=== PATIENT | male | born 1950 | race African-American/Black ===

== ENCOUNTER 2016-04-25 09:21 | Emergency (ER) | payer MEDICARE ==
[2016-04-25] MEDS ORDERED: methylPREDNISolone Sod Succ/PF 125 MG/2 ML VIAL ONE (09:38)
[2016-04-25] MEDS ORDERED: Sterile Water 10 ML ONE (09:39)
--- NOTE | 2016-04-25 09:50 | RAD ---
SINGLE VIEW OF THE CHEST: COMPARISON: 12/01/12. HISTORY: Cough. FINDINGS: Single view of the chest shows a normal sized cardiomediastinal silhouette. There is no evidence of consolidation, mass, or pleural effusion. The bones are unremarkable. IMPRESSION: No evidence of acute cardiopulmonary disease. POS: [facility]
[2016-04-25 10:24] LABS: Anion Gap 17 mmol/L (10-20); BUN (Urea Nitrogen) 10 mg/dL (8.4-25.7); Calc. Creatinine Clearance 0 mL/min (70-130); Calcium 9.2 mg/dL (7.8-10.44); Carbon Dioxide 23 mmol/L (23-31); Chloride 102 mmol/L (98-107); Estimated GFR-MDRD 82; Glucose 99 mg/dL (80-115); Potassium 3.4 mmol/L (3.5-5.1); Sodium 139 mmol/L (136-145)
[2016-04-25 10:31] LABS: Hemoglobin 14.6 g/dL (14.0-18.0); Mean Corpuscular HGB CONC 33.6 g/dL (32.0-36.0); Mean Corpuscular Hemoglobin 27.8 pg (27.0-31.0); Mean Corpuscular Volume 82.6 fl (80.0-94.0); RBC Distribution Width 12.7 % (11.5-14.5); Red Blood Cell (RBC) Count 5.25 mill/uL (4.70-6.10); White Blood Cell (WBC) Count 9.3 thou/uL (4.8-10.8)
[2016-04-25 10:32] LABS: %Basophils 1.2 % (0.0-1.0); %Eosinophils 0.5 % (0.0-10.0); %Lymphocytes 18.6 % (21.0-51.0); %Monocytes 8.5 % (0.0-10.0); %Neutrophils 71.2 % (42.0-75.0); Eosinophils 1 % (0-10); Lymphocytes 24 % (21-51); Monocytes 6 % (0-10); Neutrophil 69 % (42-75); Platelet Count 192 thou/uL (130-400)
[2016-04-25 10:33] LABS: MDiff Complete? YES; Manual Diff?? YES
[2016-04-25 10:44] LABS: CKMB 7.6 ng/mL (0-6.6)
[2016-04-25] MEDS ORDERED: Aspirin 325 MG TAB ONE (11:03)
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
== END 2016-04-25 11:22 | disposition short-term general hospital (02) ==
LOC: MADERS 09:21
DX: R06.00 Dyspnea, unspecified (principal); R79.89 Other specified abnormal findings of blood chemistry; F17.210 Nicotine dependence, cigarettes, uncomplicated
CPT/HCPCS: 71010; 80048; 82553; 83880; 84484; 85025; 93005; 94760; 96374; A4216; J2930; J7620

== ENCOUNTER 2016-05-05 07:12 | Emergency (ER) | payer MEDICARE | END 2016-05-05 08:10 | disposition home or self-care (01) | LOC: MADERS 07:12 | DX: M79.604 Pain in right leg (principal); I10 Essential (primary) hypertension; F17.210 Nicotine dependence, cigarettes, uncomplicated; Z79.899 Other long term (current) drug therapy | CPT/HCPCS: 99283 ==

== ENCOUNTER 2016-10-08 03:16 | Emergency (ER) | payer MEDICARE ==
[2016-10-08] MEDS ORDERED: Diazepam 5 MG TAB ONE (03:45)
[2016-10-08] MEDS ORDERED: HYDROcodone/Acetaminophen 10/325 mg Tablet ONE (03:45)
[2016-10-08] MEDS ORDERED: Acetaminophen 500 MG TAB ONE (03:45)
[2016-10-08] MEDS ORDERED: Dexamethasone 4 MG TAB ONE (03:45)
== END 2016-10-08 04:50 | disposition home or self-care (01) ==
LOC: MADERS 03:16
DX: M54.32 Sciatica, left side (principal); F17.210 Nicotine dependence, cigarettes, uncomplicated; I10 Essential (primary) hypertension; Z79.899 Other long term (current) drug therapy
CPT/HCPCS: 99283; J8540

== ENCOUNTER 2016-11-25 13:31 | Emergency (ER) | payer MEDICARE ==
[2016-11-25] MEDS ORDERED: HYDROcodone/Acetaminophen 10/325 mg Tablet ONE (14:45)
[2016-11-25 14:46] LABS: #Basophils 0.1 thou/uL (0.0-0.2); #Eosinphils 0.1 thou/uL (0.0-0.7); #Lymphocytes 2.1 thou/uL (1.20-3.40); #Monocytes 0.6 thou/uL (0.11-0.59); #Neutrophils 2.2 thou/uL (1.40-6.50); %Basophils 1.2 % (0.0-1.0); %Eosinophils 2.6 % (0.0-10.0); %Lymphocytes 41.7 % (21.0-51.0); %Monocytes 11.1 % (0.0-10.0); %Neutrophils 43.4 % (42.0-75.0); Hemoglobin 14.9 g/dL (14.0-18.0); Mean Corpuscular HGB CONC 32.4 g/dL (32.0-36.0); Mean Corpuscular Hemoglobin 26.9 pg (27.0-31.0); Mean Corpuscular Volume 83.1 fl (80.0-94.0); Mean Platelet Volume 7.9 fL (7.4-10.4); Platelet Count 134 thou/uL (130-400); RBC Distribution Width 14.2 % (11.5-14.5); Red Blood Cell (RBC) Count 5.54 mill/uL (4.70-6.10); White Blood Cell (WBC) Count 5.1 thou/uL (4.8-10.8)
[2016-11-25] MEDS ORDERED: Labetalol HCl 100 MG/20 ML VIAL ONE (14:46)
[2016-11-25] MEDS ORDERED: Ketorolac Tromethamine 30 MG/ML VIAL ONE (14:46)
[2016-11-25] MEDS ORDERED: Ondansetron HCl/PF 4 MG/2 ML Vial ONE (14:46)
[2016-11-25 14:59] LABS: ALT (SGPT) 24 U/L (8-55); AST (SGOT) 30 U/L (5-34); Albumin 3.7 g/dL (3.4-4.8); Alkaline Phosphatase 74 U/L (40-150); Anion Gap 15 mmol/L (10-20); BUN (Urea Nitrogen) 13 mg/dL (8.4-25.7); Bilirubin, Total 0.6 mg/dL (0.2-1.2); Calc. Creatinine Clearance 0 mL/min (70-130); Calcium 9.1 mg/dL (7.8-10.44); Carbon Dioxide 23 mmol/L (23-31); Chloride 104 mmol/L (98-107); Estimated GFR-MDRD Greater than 90; Globulin 3.9 g/dL (2.4-3.5); Glucose 88 mg/dL (80-115); Potassium 4.3 mmol/L (3.5-5.1); Protein, Total 7.6 g/dL (5.8-8.1); Sodium 138 mmol/L (136-145)
--- NOTE | 2016-11-25 15:39 | CT ---
CT BRAIN WITHOUT CONTRAST: History: Progressively severe headaches. FINDINGS: There are changes of chronic small vessel ischemic disease in the periventricular white matter. The ventricular size is appropriate and the basilar cisterns are patent. Large basal ganglia without opa cifications present. No evidence of acute infarct, hemorrhage, midline shift, or abnormal extraaxial fluid collections ar e seen. The bony calvarium is intact. The visualized paranasal sinuses are well aerated. IMPRESSION: No CT evidence of acute intracranial process. POS: OFF
--- NOTE | 2016-11-25 15:41 | RAD ---
SINGLE VIEW OF THE CHEST 11/25/16 COMPARISON: 04/25/16 HISTORY: Hypertension that is worsening. FINDINGS: Single view of the chest shows a normal sized cardiomediastinal silhouette. There is no evidence of consolidation, mass, or pleural effusion. The bones are unremarkable. IMPRESSION: No evidence of acute cardiopulmonary disease. POS: [facility]
== END 2016-11-25 16:20 ==
LOC: MADERS 13:31
DX: I10 Essential (primary) hypertension (principal); R51 Headache; F17.210 Nicotine dependence, cigarettes, uncomplicated
CPT/HCPCS: 70450; 71010; 80053; 83880; 84443; 85025; 87086; 93005; 96374; 96375; J1885; J2405

== ENCOUNTER 2017-05-16 10:40 | Emergency (ER) | payer MEDICARE | END 2017-05-16 11:30 | disposition home or self-care (01) | LOC: MADERS 10:40 | DX: G89.29 Other chronic pain (principal); M54.5 Low back pain; M25.511 Pain in right shoulder; I10 Essential (primary) hypertension; F17.210 Nicotine dependence, cigarettes, uncomplicated | CPT/HCPCS: 99283 ==

== ENCOUNTER 2017-12-23 02:48 | Emergency (ER) | payer MEDICARE ==
[2017-12-23] MEDS ORDERED: HYDROcodone/Acetaminophen 10/325 mg Tablet ONE (03:15)
[2017-12-23] MEDS ORDERED: predniSONE 20 MG TAB ONE (03:16)
[2017-12-23] MEDS ORDERED: Ketorolac Tromethamine 30 MG/ML VIAL ONE (03:16)
[2017-12-23] MEDS ORDERED: HYDROcodone/Acetaminophen 5/325 mg Tablet ONE (03:17)
== END 2017-12-23 03:49 | disposition home or self-care (01) ==
LOC: MADERS 02:48
DX: M54.42 Lumbago with sciatica, left side (principal); I10 Essential (primary) hypertension; Z79.891 Long term (current) use of opiate analgesic; Z79.899 Other long term (current) drug therapy
CPT/HCPCS: 96372; J1885; J7506

== ENCOUNTER 2018-07-22 08:43 | Emergency (ER) | payer MEDICARE ==
--- NOTE | 2018-07-22 09:43 | RAD ---
EXAM: Portable chest PROVIDED CLINICAL HISTORY: Chest pain COMPARISON: 11/25/2016 FINDINGS: Cardiac and mediastinal silhouette is unchanged in appearance. Vascular calcification involves the ao rtic arch. No focal consolidation, pleural fluid or pneumothorax evident. IMPRESSION: No evidence for an acute cardiopulmonary process.
[2018-07-22 09:48] LABS: #Basophils 0.1 thou/uL (0.0-0.2); #Eosinphils 0.1 thou/uL (0.0-0.7); #Lymphocytes 1.8 thou/uL (1.20-3.40); #Monocytes 0.4 thou/uL (0.11-0.59); %Basophils 1.1 % (0.0-1.0); %Eosinophils 2.1 % (0.0-10.0); %Lymphocytes 33.8 % (21.0-51.0); %Monocytes 7.8 % (0.0-10.0); %Neutrophils 55.3 % (42.0-75.0); Hemoglobin 15.1 g/dL (14.0-18.0); Mean Corpuscular Hemoglobin 26.5 pg (27.0-31.0); Mean Corpuscular Volume 82.7 fL (78.0-98.0); Mean Platelet Volume 8.6 fL (7.4-10.4); Platelet Count 157 thou/uL (130-400); RBC Distribution Width 12.7 % (11.5-14.5); Red Blood Cell (RBC) Count 5.72 mill/uL (4.70-6.10); White Blood Cell (WBC) Count 5.3 thou/uL (4.8-10.8)
[2018-07-22] MEDS ORDERED: methylPREDNISolone Sod Succ/PF 125 MG/2 ML VIAL ONE (09:54)
[2018-07-22] MEDS ORDERED: Aspirin Chewable 81 MG TAB ONE (09:54)
[2018-07-22] MEDS ORDERED: Water For Inject, Bacteriostat 30 ML ONE (09:55)
[2018-07-22 10:03] LABS: ALT (SGPT) 15 U/L (8-55); AST (SGOT) 23 U/L (5-34); Alkaline Phosphatase 71 U/L (40-150); Anion Gap 15 mmol/L (10-20); BUN (Urea Nitrogen) 12 mg/dL (8.4-25.7); Bilirubin, Total 1.5 mg/dL (0.2-1.2); CK (CPK) 289 U/L (30-200); Calc. Creatinine Clearance 0 mL/min (70-130); Calcium 9.1 mg/dL (7.8-10.44); Carbon Dioxide 27 mmol/L (23-31); Chloride 102 mmol/L (98-107); Estimated GFR-MDRD 75; Globulin 3.5 g/dL (2.4-3.5); Glucose 123 mg/dL (80-115); Lipase 17 U/L (8-78); Protein, Total 7.5 g/dL (5.8-8.1); Sodium 141 mmol/L (136-145)
[2018-07-22 10:14] LABS: Potassium 2.6 mmol/L (3.5-5.1)
[2018-07-22] MEDS ORDERED: Potassium Chloride 20 MEQ/100 ML PREMIX BAG ONE (10:53)
[2018-07-22] MEDS ORDERED: Potassium Chloride 20 MEQ TAB ONE (10:53)
[2018-07-22] MEDS ORDERED: Sodium Chloride 0.9% 1,000 ML ONE (10:54)
[2018-07-22] MEDS ORDERED: Nitroglycerin 2% Ointment 1 INCH/1 GM Packet ONE (11:07)
== END 2018-07-22 12:02 | disposition short-term general hospital (02) ==
LOC: MADERS 08:43
DX: E87.6 Hypokalemia (principal); R07.9 Chest pain, unspecified; F17.210 Nicotine dependence, cigarettes, uncomplicated; I10 Essential (primary) hypertension
CPT/HCPCS: 36415; 71045; 80053; 82550; 83690; 84484; 85025; 93005; 94640; 96365; J2930; J3480; J7050; J7620

== ENCOUNTER 2018-09-06 16:55 | Emergency (ER) | payer MEDICARE ==
[2018-09-06] MEDS ORDERED: Ibuprofen 800 MG TAB ONE (17:20)
== END 2018-09-06 17:25 | disposition home or self-care (01) ==
LOC: MADERS 16:55
DX: S70.01XA Contusion of right hip, initial encounter (principal); S39.82XA Other specified injuries of lower back, initial encounter; I10 Essential (primary) hypertension; F17.210 Nicotine dependence, cigarettes, uncomplicated; I25.10 Atherosclerotic heart disease of native coronary artery without angina pectoris; Z71.6 Tobacco abuse counseling; V59.9XXA Occupant (driver) (passenger) of pick-up truck or van injured in unspecified traffic accident, initial encounter
CPT/HCPCS: 99406

== ENCOUNTER 2018-10-23 09:51 | Emergency (ER) | payer MEDICARE | END 2018-10-23 10:30 | disposition home or self-care (01) | LOC: MADERS 09:51 | DX: G89.29 Other chronic pain (principal); M54.5 Low back pain; Z76.0 Encounter for issue of repeat prescription; F17.210 Nicotine dependence, cigarettes, uncomplicated; I10 Essential (primary) hypertension | CPT/HCPCS: 99281 ==

== ENCOUNTER 2019-04-12 22:43 | Emergency (ER) | payer MEDICARE, OTHER ==
[2019-04-12] MEDS ORDERED: Ondansetron PF 4 MG/2 ML Vial ONE (23:33)
[2019-04-12] MEDS ORDERED: Pantoprazole 40 MG VIAL ONE (23:33)
[2019-04-12] MEDS ORDERED: Lisinopril 10 MG TAB ONE (23:37)
[2019-04-13 00:05] LABS: #Basophils 0.1 thou/uL (0.0-0.2); #Eosinphils 0.3 thou/uL (0.0-0.7); #Lymphocytes 2.8 thou/uL (1.20-3.40); #Monocytes 0.5 thou/uL (0.11-0.59); #Neutrophils 3.7 thou/uL (1.40-6.50); %Basophils 1.8 % (0.0-1.0); %Eosinophils 3.9 % (0.0-10.0); %Lymphocytes 37.3 % (21.0-51.0); %Monocytes 6.9 % (0.0-10.0); %Neutrophils 50.1 % (42.0-75.0); Hemoglobin 16.2 g/dL (14.0-18.0); Mean Corpuscular HGB CONC 30.3 g/dL (32.0-36.0); Mean Corpuscular Hemoglobin 25.8 pg (27.0-31.0); Mean Platelet Volume 7.8 fL (7.4-10.4); Platelet Count 182 thou/uL (130-400); RBC Distribution Width 12.4 % (11.5-14.5); Red Blood Cell (RBC) Count 6.29 mill/uL (4.70-6.10); White Blood Cell (WBC) Count 7.4 thou/uL (4.8-10.8)
[2019-04-13] MEDS ORDERED: Sodium Chloride 0.9% 1,000 ML ONE (00:21)
[2019-04-13 00:22] LABS: ALT (SGPT) 23 U/L (8-55); Albumin 4.3 g/dL (3.4-4.8); Alkaline Phosphatase 64 U/L (40-110); Anion Gap 19 mmol/L (10-20); BUN (Urea Nitrogen) 11 mg/dL (8.4-25.7); Bilirubin, Total 0.7 mg/dL (0.2-1.2); Calc. Creatinine Clearance 0 mL/min (70-130); Calcium 9.6 mg/dL (7.8-10.44); Carbon Dioxide 22 mmol/L (23-31); Chloride 101 mmol/L (98-107); Estimated GFR-MDRD Greater than 90; Globulin 4.1 g/dL (2.4-3.5); Glucose 81 mg/dL (83-110); Lipase 22 U/L (8-78); Potassium 4.1 mmol/L (3.5-5.1); Protein, Total 8.4 g/dL (5.8-8.1); Sodium 138 mmol/L (136-145)
[2019-04-13 00:25] LABS: AST (SGOT) 30 U/L (5-34)
--- NOTE | 2019-04-13 07:47 | RAD ---
XR Chest 1 View Portable History: Cough Comparison: Radiograph July 22, 2018 Findings: Heart size upper limits of normal. Mild pulmonary venous congestion. No pneumothorax. Trace effusions. Impression: Cardiomegaly with early pulmonary edema.
== END 2019-04-13 01:10 ==
LOC: MADERS 22:43
DX: J20.9 Acute bronchitis, unspecified (principal); K29.70 Gastritis, unspecified, without bleeding; F17.210 Nicotine dependence, cigarettes, uncomplicated; I10 Essential (primary) hypertension; E78.5 Hyperlipidemia, unspecified
CPT/HCPCS: 71045; 80053; 83690; 85025; 87804; 96361; 96374; 96375; C9113; J2405; J7050

== ENCOUNTER 2020-02-08 19:13 | Inpatient (IN) | payer MEDICARE ==
[2020-02-08 21:30] VITALS: BMI 23.0
[2020-02-08] MEDS ORDERED: Senokot S 8.6-50 MG TAB PO PRN ×2 (22:15→22:40)
[2020-02-08] MEDS ORDERED: Guaifenesin DM 100-10/5 ML UDCUP PO PRN ×2 (22:17→22:40)
[2020-02-08] MEDS ORDERED: Acetaminophen 325 MG TAB PO PRN (22:20)
[2020-02-08] MEDS ORDERED: Ondansetron ODT 4 MG TAB PO PRN (22:40)
[2020-02-08] MEDS ORDERED: Atorvastatin Calcium 40 MG TAB PO SCH (23:00)
[2020-02-08] MEDS ORDERED: Lisinopril 20 MG TAB PO SCH (23:00)
[2020-02-08] MEDS ORDERED: Ipratropium/Albuterol Sulfate 4 GM AER IH SCH (23:00)
[2020-02-08] MEDS ORDERED: Gabapentin 400 MG CAP PO SCH (23:00)
[2020-02-08] MEDS: Gabapentin 400 MG CAP PO SCH (23:49)
[2020-02-08] MEDS: Lisinopril 20 MG TAB PO SCH (23:50)
[2020-02-08] MEDS: Atorvastatin Calcium 40 MG TAB PO SCH (23:51)
[2020-02-08] MEDS: Ipratropium/Albuterol Sulfate 4 GM AER IH SCH (23:51)
[2020-02-09] MEDS ORDERED: Carvedilol 3.125 MG TAB PO SCH (08:00)
[2020-02-09] MEDS: Aspirin 81 mg Enteric Coated Tablet PO SCH (08:17)
[2020-02-09] MEDS: Dexamethasone 4 MG TAB PO SCH (08:17)
[2020-02-09] MEDS: Carvedilol 3.125 MG TAB PO SCH ×2 (08:18→17:58)
[2020-02-09] MEDS: Gabapentin 400 MG CAP PO SCH ×3 (08:19→20:53)
[2020-02-09] MEDS: Amlodipine 5 MG TAB PO SCH (08:20)
[2020-02-09] MEDS: Magnesium Oxide 400 MG TAB PO SCH (08:20)
[2020-02-09] MEDS: Furosemide 20 MG TAB PO SCH (08:20)
[2020-02-09] MEDS: Ipratropium/Albuterol Sulfate 4 GM AER IH SCH ×4 (08:31→21:00)
[2020-02-09] MEDS: Lisinopril 20 MG TAB PO SCH ×2 (08:32→20:54)
[2020-02-09] MEDS: Ondansetron ODT 4 MG TAB PO PRN (08:38)
[2020-02-09] MEDS ORDERED: Magnesium Oxide 400 MG TAB PO SCH (09:00)
[2020-02-09] MEDS ORDERED: Non-Formulary Item 1 EACH (Amlodipine [Norvasc] 10 MG Tab) PO SCH (09:00)
[2020-02-09] MEDS ORDERED: FLU VACC QS2020-21(65YR UP)/PF 240 MCG/0.7 ML SYRINGE IM ONE (09:00)
[2020-02-09] MEDS ORDERED: Aspirin 81 mg Enteric Coated Tablet PO SCH (09:00)
[2020-02-09] MEDS ORDERED: Furosemide 20 MG TAB PO SCH (09:00)
[2020-02-09] MEDS ORDERED: DEXAMETHASONE 6 MG PO SCH (09:00)
[2020-02-09] MEDS ORDERED: Gabapentin 400 MG CAP PO SCH (09:00)
[2020-02-09] MEDS ORDERED: Lisinopril 20 MG TAB PO SCH (09:00)
[2020-02-09] MEDS ORDERED: Famotidine 20 MG TAB PO SCH (14:45)
[2020-02-09] MEDS: Simethicone Chewable 80 MG TAB PO PRN (16:03)
--- NOTE | 2020-02-09 19:09 | HP ---
PRIMARY CARE PHYSICIAN: Adriel Thomson MD REASON FOR ADMISSION: For skilled rehabilitation at [facility] secondary to COVID-19 pneumonia without hypoxia, physical deconditioning with intermediate troponins. BRIEF HISTORY AND PHYSICAL: The patient is a 69-year-old male with history of hypertension, [id number] coronary artery disease, tobacco use, cocaine use, who presented to the emergency room due to cough x2 weeks and then subjective fevers with a temperature of 101 on February 05. The patient states that his cough was minimally productive. He stated he started having increased shortness of breath and generalized weakness with his muscles aching, so he called the EMS. Upon evaluation, his temperature was 101. They gave him nitroglycerin, 1 g of Tylenol, and some fluids and his temperature resolved when he got to the emergency room. He was saturating well on room air and found to be leukopenic with a right lower lobe early infiltrate on his chest x-ray. The patient was given Rocephin and azithromycin in the emergency room. He had a COVID test done and the COVID test did eventually come back positive. The patient was subsequently admitted to [facility] on the 06 of February. He had low platelet count of 101 on the and later dropped to 66 on the , so he had no Lovenox or heparin given in the hospital and he was not having any bleeding. He was breathing well on room air and next day ambulating well with improvement in his cough. He did initially have a temperature of 101 on admission, but no more temperature since then. He was started on some steroids, which will be continued. He was started on dexamethasone, which he is being continued. Due to COVID-19, patient was noted to be weak and with discussion with him and his family, it seems he does not have a house and he was staying with various friends. The decision was made to transfer the patient to [facility] while he has been sick with COVID-19. Upon evaluation of the patient today in [facility], patient complains of some nausea, epigastric pain. He denies any shortness of breath, but he states that he takes Prilosec or Pepcid at home which helps him significantly. He states his body ache is improving and his cough is improving. PAST MEDICAL HISTORY: Coronary artery disease, cocaine use, tobacco use, non-ischemic cardiomyopathy with an echo showing EF of 45% to 50%, grade 2-3 diastolic dysfunction, hypertension, hyperlipidemia, GERD, and history of a bleeding ulcer. PAST SURGICAL HISTORY: Cardiac catheterization. CODE STATUS: The patient is a full code. ALLERGIES: NO KNOWN DRUG ALLERGIES. FAMILY HISTORY: States multiple family members with heart problems as well as strokes. SOCIAL HISTORY: Patient smokes half a pack of cigarettes per day. Last cocaine use was about 2 weeks ago. He denies alcohol use. He notes if ever incapacitated, he states his daughter should be the medical decision maker and her name is Samra Sy. MEDICATIONS: 1. Tylenol 1000 mg q.6 p.r.n. 2. Combivent 1 inhalation q.i.d. 3. Amlodipine 10 mg daily. 4. Aspirin 81 mg daily. 5. Lovastatin 4 mg at bedtime. 6. Carvedilol 3.125 b.i.d. 7. Dexamethasone 6 mg daily x8 days, to complete a 10-day course. 8. Pepcid 20 mg b.i.d. 9. Lasix 20 mg daily. 10. Neurontin 400 mg t.i.d. 11. Robitussin 15 mL q.4 hours p.r.n. cough. 12. Lisinopril 20 mg b.i.d. 13. Magnesium oxide 400 mg daily. 14. Verapamil 120 mg extended release daily. REVIEW OF SYSTEMS: GENERAL: Positive for weakness. EYES: With conjunctivae erythema. No vision loss or blurry vision. No eye pain. ENT: Moist oral mucous membrane. No sore throat. CARDIOVASCULAR: Denies any chest pain, palpitations. PULMONARY: Patient complains of cough. Denies any shortness of breath. GASTROINTESTINAL: Patient does complain of epigastric pain and some vomiting, but no diarrhea. GENITOURINARY: Denies dysuria, hematuria, frequency, or urgency. MUSCULOSKELETAL: Still complains of some muscle aches, but no focal symptoms. SKIN: No rashes, lesions. NEUROLOGICAL: Weakness, but no numbness or tingling. PSYCHIATRIC: No hallucination, confusion, or delusions. PHYSICAL EXAMINATION: VITAL SIGNS: Blood pressure 149/89, temperature 97.1, pulse 118, O2 saturation 92% on room air, respirations 20. GENERAL: The patient is a well-developed male, sitting up in chair, in mild distress due to epigastric pain, but no respiratory distress. HEENT: Pupils round, reactive, equal to light. Oral mucous membranes moist. Oropharynx is clear without lesion, erythema, or exudate. NECK: Supple. No JVD. No lymphadenopathy. No thyroid nodules or enlargement. HEART: Regular rate and rhythm. No murmurs, rubs, or gallops. LUNGS: The patient does have good air movement throughout bilateral lungs. He does have some mild cracking in the bilateral bases. No increased work of breathing. ABDOMEN: Positive bowel sounds, soft. Mild epigastric tenderness. No palpable masses or hepatosplenomegaly. EXTREMITIES: No clubbing, cyanosis, or edema. SKIN: No rashes or lesions noted. NEUROLOGICAL: Patient able to move all extremities. No focal deficits. PSYCHIATRY: Patient is alert, awake, and oriented x3. Normal mood and affect. ASSESSMENT: 1. COVID-19 pneumonia without hypoxia. 2. Intermediate troponins. 3. Hypertension. 4. Thrombocytopenia. 5. Polysubstance abuse. 6. Tobacco abuse. 7. Hyperlipidemia. 8. Physical deconditioning. PLAN: Patient is a 69-year-old male, being admitted to [facility] in [facility] due to deconditioning due to COVID-19 pneumonia. We will consult Physical Therapy and Occupational Therapy to help with gait, strengthening, balance, and activities of daily living. We will consult social media editor to help with the discharge planning. We will continue patient on dexamethasone to complete a 10-day course. We will keep the patient on COVID-19 respiratory droplet isolation. We will monitor the patient closely for any hemodynamic instability. We will resume home medications. We will place the patient on famotidine b.i.d. for GI prophylaxis. The patient cannot be put on Lovenox subcu due to his thrombocytopenia. We will place the patient on SCDs. ESTIMATED LENGTH OF STAY: 2 to 3 weeks. DISCHARGE DISPOSITION: Back to home with family member. TIME SPENT: Length of time used to prepare and evaluate the patient for this H and P was greater than 45 minutes. Job ID: [id number]
[2020-02-09] MEDS: Famotidine 20 MG TAB PO SCH (20:52)
[2020-02-09] MEDS: Atorvastatin Calcium 40 MG TAB PO SCH (20:53)
[2020-02-09] MEDS ORDERED: Atorvastatin Calcium 40 MG TAB PO SCH (21:00)
[2020-02-10] MEDS: Lisinopril 20 MG TAB PO SCH ×2 (08:11→20:52)
[2020-02-10] MEDS: Famotidine 20 MG TAB PO SCH ×2 (08:11→20:51)
[2020-02-10] MEDS: Dexamethasone 4 MG TAB PO SCH (08:12)
[2020-02-10] MEDS: Furosemide 20 MG TAB PO SCH (08:12)
[2020-02-10] MEDS: Gabapentin 400 MG CAP PO SCH ×3 (08:12→20:52)
[2020-02-10] MEDS: Aspirin 81 mg Enteric Coated Tablet PO SCH (08:12)
[2020-02-10] MEDS: Carvedilol 3.125 MG TAB PO SCH ×2 (08:13→16:28)
[2020-02-10] MEDS: Amlodipine 5 MG TAB PO SCH (08:13)
[2020-02-10] MEDS: Magnesium Oxide 400 MG TAB PO SCH (08:13)
[2020-02-10] MEDS: Ipratropium/Albuterol Sulfate 4 GM AER IH SCH ×4 (08:14→20:53)
[2020-02-10] MEDS: Simethicone Chewable 80 MG TAB PO PRN ×2 (10:04→20:53)
[2020-02-10] MEDS: Ondansetron ODT 4 MG TAB PO PRN (10:04)
[2020-02-10] MEDS: Atorvastatin Calcium 40 MG TAB PO SCH (20:53)
[2020-02-11] MEDS: Gabapentin 400 MG CAP PO SCH ×4 (09:05→21:47)
[2020-02-11] MEDS: Carvedilol 3.125 MG TAB PO SCH ×2 (09:05→18:02)
[2020-02-11] MEDS: Furosemide 20 MG TAB PO SCH (09:05)
[2020-02-11] MEDS: Famotidine 20 MG TAB PO SCH ×2 (09:05→21:16)
[2020-02-11] MEDS: Aspirin 81 mg Enteric Coated Tablet PO SCH (09:05)
[2020-02-11] MEDS: Amlodipine 5 MG TAB PO SCH (09:06)
[2020-02-11] MEDS: Magnesium Oxide 400 MG TAB PO SCH (09:06)
[2020-02-11] MEDS: Dexamethasone 4 MG TAB PO SCH (09:06)
[2020-02-11] MEDS: Lisinopril 20 MG TAB PO SCH ×2 (09:06→21:16)
[2020-02-11] MEDS: Ipratropium/Albuterol Sulfate 4 GM AER IH SCH ×4 (09:07→21:16)
[2020-02-11] MEDS: Atorvastatin Calcium 40 MG TAB PO SCH ×2 (21:16→21:48)
[2020-02-11] MEDS: Simethicone Chewable 80 MG TAB PO PRN (21:17)
[2020-02-12] MEDS: Famotidine 20 MG TAB PO SCH ×2 (09:58→20:54)
[2020-02-12] MEDS: Magnesium Oxide 400 MG TAB PO SCH (09:58)
[2020-02-12] MEDS: Ipratropium/Albuterol Sulfate 4 GM AER IH SCH ×4 (09:58→20:56)
[2020-02-12] MEDS: Aspirin 81 mg Enteric Coated Tablet PO SCH (09:58)
[2020-02-12] MEDS: Furosemide 20 MG TAB PO SCH (09:58)
[2020-02-12] MEDS: Lisinopril 20 MG TAB PO SCH ×2 (09:59→20:54)
[2020-02-12] MEDS: Dexamethasone 4 MG TAB PO SCH (09:59)
[2020-02-12] MEDS: Gabapentin 400 MG CAP PO SCH ×3 (10:01→20:55)
[2020-02-12] MEDS: Amlodipine 5 MG TAB PO SCH (10:04)
[2020-02-12] MEDS: Carvedilol 3.125 MG TAB PO SCH ×2 (10:04→17:31)
[2020-02-12] MEDS: Acetaminophen 500 MG TAB PO PRN (15:09)
[2020-02-12] MEDS: Atorvastatin Calcium 40 MG TAB PO SCH (20:55)
[2020-02-13] MEDS: Gabapentin 400 MG CAP PO SCH ×3 (08:18→20:21)
[2020-02-13] MEDS: Amlodipine 5 MG TAB PO SCH (08:18)
[2020-02-13] MEDS: Magnesium Oxide 400 MG TAB PO SCH (08:19)
[2020-02-13] MEDS: Dexamethasone 4 MG TAB PO SCH (08:19)
[2020-02-13] MEDS: Lisinopril 20 MG TAB PO SCH ×2 (08:19→20:21)
[2020-02-13] MEDS: Furosemide 20 MG TAB PO SCH (08:19)
[2020-02-13] MEDS: Famotidine 20 MG TAB PO SCH ×2 (08:19→20:21)
[2020-02-13] MEDS: Ipratropium/Albuterol Sulfate 4 GM AER IH SCH ×4 (08:20→20:22)
[2020-02-13] MEDS: Aspirin 81 mg Enteric Coated Tablet PO SCH (08:20)
[2020-02-13] MEDS: Carvedilol 3.125 MG TAB PO SCH ×2 (08:20→16:12)
[2020-02-13] MEDS: Acetaminophen 500 MG TAB PO PRN (20:20)
[2020-02-13] MEDS: Atorvastatin Calcium 40 MG TAB PO SCH (20:21)
[2020-02-13] MEDS: Simethicone Chewable 80 MG TAB PO PRN (20:22)
[2020-02-14] MEDS: Aspirin 81 mg Enteric Coated Tablet PO SCH (08:02)
[2020-02-14] MEDS: Amlodipine 5 MG TAB PO SCH (08:02)
[2020-02-14] MEDS: Lisinopril 20 MG TAB PO SCH ×2 (08:03→20:45)
[2020-02-14] MEDS: Furosemide 20 MG TAB PO SCH (08:03)
[2020-02-14] MEDS: Carvedilol 3.125 MG TAB PO SCH ×2 (08:03→16:53)
[2020-02-14] MEDS: Dexamethasone 4 MG TAB PO SCH (08:03)
[2020-02-14] MEDS: Gabapentin 400 MG CAP PO SCH ×3 (08:03→20:50)
[2020-02-14] MEDS: Famotidine 20 MG TAB PO SCH ×2 (08:03→20:49)
[2020-02-14] MEDS: Magnesium Oxide 400 MG TAB PO SCH (08:03)
[2020-02-14] MEDS: Ipratropium/Albuterol Sulfate 4 GM AER IH SCH ×4 (08:04→20:53)
[2020-02-14] MEDS: Atorvastatin Calcium 40 MG TAB PO SCH (20:50)
[2020-02-15] MEDS: Magnesium Oxide 400 MG TAB PO SCH (08:04)
[2020-02-15] MEDS: Aspirin 81 mg Enteric Coated Tablet PO SCH (08:04)
[2020-02-15] MEDS: Lisinopril 20 MG TAB PO SCH (08:04)
[2020-02-15] MEDS: Famotidine 20 MG TAB PO SCH (08:04)
[2020-02-15] MEDS: Amlodipine 5 MG TAB PO SCH (08:04)
[2020-02-15] MEDS: Dexamethasone 4 MG TAB PO SCH (08:05)
[2020-02-15] MEDS: Carvedilol 3.125 MG TAB PO SCH (08:05)
[2020-02-15] MEDS: Gabapentin 400 MG CAP PO SCH (08:05)
[2020-02-15] MEDS: Furosemide 20 MG TAB PO SCH (08:05)
[2020-02-15] MEDS: Ipratropium/Albuterol Sulfate 4 GM AER IH SCH ×2 (08:07→12:46)
[2020-02-15 09:13] VITALS: BP 133/83; TEMP 97.9
== END 2020-02-15 13:45 | disposition left against medical advice (07) | DRG 177 ==
LOC: MADMS 19:13
PROVIDERS: ADMIT Family Medicine; ATTEND Family Medicine
PROC: 8E0ZXY6 Isolation (ICD-10-PCS; principal; 2020-02-08)
DX: U07.1 COVID-19 (principal); J12.89 Other viral pneumonia; I42.8 Other cardiomyopathies; R53.81 Other malaise; I10 Essential (primary) hypertension; I25.10 Atherosclerotic heart disease of native coronary artery without angina pectoris; E78.5 Hyperlipidemia, unspecified; K21.9 Gastro-esophageal reflux disease without esophagitis; F17.210 Nicotine dependence, cigarettes, uncomplicated; Z79.82 Long term (current) use of aspirin; Z79.899 Other long term (current) drug therapy; D69.6 Thrombocytopenia, unspecified; F19.10 Other psychoactive substance abuse, uncomplicated
CPT/HCPCS: J8540; Q0162

== ENCOUNTER 2020-03-08 13:46 | Emergency (ER) | payer MEDICARE, OTHER ==
[~2020-03-08 13:46] MED LIST: Iopamidol 370 76% 100 ML VIAL ONE
[2020-03-08] MEDS ORDERED: Aspirin 325 MG TAB ONE ×2 (14:30→14:31)
[2020-03-08] MEDS ORDERED: Mag-Al Plus 1200 MG/1200 MG/120 MG/30 ML UDCUP ONE (14:31)
[2020-03-08] MEDS ORDERED: Acetaminophen 500 MG TAB ONE (14:31)
[2020-03-08 14:38] LABS: #Basophils 0.1 thou/uL (0.0-0.2); #Eosinphils 0.1 thou/uL (0.0-0.7); #Lymphocytes 1.9 thou/uL (1.20-3.40); #Monocytes 0.5 thou/uL (0.11-0.59); #Neutrophils 2.6 thou/uL (1.40-6.50); %Basophils 1.6 % (0.0-1.0); %Eosinophils 1.2 % (0.0-10.0); %Monocytes 8.9 % (0.0-10.0); %Neutrophils 51.3 % (42.0-75.0); Hemoglobin 15.2 g/dL (14.0-18.0); Mean Corpuscular HGB CONC 31.8 g/dL (32.0-36.0); Mean Corpuscular Hemoglobin 27.2 pg (27.0-31.0); Mean Corpuscular Volume 85.6 fL (78.0-98.0); Mean Platelet Volume 8.2 fL (7.4-10.4); Platelet Count 261 thou/uL (130-400); RBC Distribution Width 12.6 % (11.5-14.5); Red Blood Cell (RBC) Count 5.57 mill/uL (4.70-6.10)
[2020-03-08 14:50] LABS: ALT (SGPT) 53 U/L (8-55); AST (SGOT) 63 U/L (5-34); Albumin 3.6 g/dL (3.4-4.8); Alkaline Phosphatase 74 U/L (40-110); Anion Gap 16 mmol/L (10-20); BUN (Urea Nitrogen) 12 mg/dL (8.4-25.7); Bilirubin, Total 0.9 mg/dL (0.2-1.2); Calc. Creatinine Clearance 0 mL/min (70-130); Calcium 8.7 mg/dL (7.8-10.44); Carbon Dioxide 28 mmol/L (23-31); Chloride 97 mmol/L (98-107); Globulin 3.7 g/dL (2.4-3.5); Glucose 148 mg/dL (83-110); Lipase 20 U/L (8-78); Potassium 3.4 mmol/L (3.5-5.1); Protein, Total 7.3 g/dL (5.8-8.1); Sodium 138 mmol/L (136-145)
--- NOTE | 2020-03-08 15:02 | RAD ---
XR Chest 1 View Portable History: Chest pain Comparison: Radiograph January 2020 Findings: Hazy left upper lobe airspace opacity. Mild right midlung and right upper lobe airspace opacity. No p neumothorax. Heart size is enlarged. Impression: New left upper lobe and slightly progressed the right upper lobe airspace opacities may r eflect pneumonia. Follow-up after treatment recommended.
--- NOTE | 2020-03-08 15:42 | CT ---
CT Abdomen Pelvis W Con History: Upper abdomen pain Comparison: None. Findings: Extensive bibasilar parenchymal scar. No pericardial effusion. Small peripheral hypodensity with peripheral calcifications/enhancement hepatic segment 6 axial image 35 measuring 15 mm. Abnormal thickening of the pylorus with concern for ulcer along the dorsal aspect of the gastric pylo herminio with small adjacent inflammation. No adjacent fluid collection or gas. Aortic contour is nonaneurysmal. No dilated loops of large or small bowel. Adrenal glands are unremar kable. Spleen is unremarkable. No hydronephrosis. Advanced degenerative change lower lumbar spine. Moderate levoscoliosis thoracolumbar junction. Impression: 1. Findings highly concerning for a deep ulcer the dorsal gastric pylorus axial image 26 at high risk for perforation. Upper endoscopy evaluation recommended. 2. 15 mm hypodensity which is exophytic from the right lobe of the liver. Nonemergent follow-up hepat ic protocol CT/MRI recommended.
[2020-03-08] MEDS ORDERED: Pantoprazole 40 MG VIAL ONE (16:19)
== END 2020-03-08 17:17 ==
LOC: EEVIPCON 13:46 → MADERS 13:46
DX: K25.9 Gastric ulcer, unspecified as acute or chronic, without hemorrhage or perforation (principal); J18.9 Pneumonia, unspecified organism; I10 Essential (primary) hypertension; E78.5 Hyperlipidemia, unspecified; F17.210 Nicotine dependence, cigarettes, uncomplicated; Z79.899 Other long term (current) drug therapy
CPT/HCPCS: 71045; 74177; 80053; 83605; 83690; 84484; 85025; 86140; 93005; 96374; C9113; Q9967

== ENCOUNTER 2020-06-23 13:49 | Emergency (ER) | payer MEDICARE ==
[~2020-06-23 13:49] MED LIST changes: -Iopamidol 370 76% 100 ML VIAL ONE; +Iopamidol 370 76% 125 ML VIAL FS ONE
[2020-06-23 14:44] LABS: Hemoglobin 15.6 g/dL (14.0-18.0); Lymphocytes 29 % (21-51); MDiff Complete? YES; Mean Corpuscular HGB CONC 30.9 g/dL (32.0-36.0); Mean Corpuscular Hemoglobin 26.6 pg (27.0-31.0); Mean Corpuscular Volume 86.2 fL (78.0-98.0); Mean Platelet Volume 9.6 fL (7.4-10.4); Monocytes 6 % (0-10); Neutrophil 63 % (42-75); Platelet Count 146 thou/uL (130-400); Platelet Morphology Comment Appears Adequate; RBC Distribution Width 13.3 % (11.5-14.5); RBC Morphology Normal; Reactive Lymphocytes 2 % (0-10); Red Blood Cell (RBC) Count 5.84 mill/uL (4.70-6.10); White Blood Cell (WBC) Count 6.8 thou/uL (4.8-10.8)
[2020-06-23 14:48] LABS: ALT (SGPT) 24 U/L (8-55); AST (SGOT) 34 U/L (5-34); Albumin 3.9 g/dL (3.4-4.8); Alkaline Phosphatase 95 U/L (40-110); Anion Gap 16 mmol/L (10-20); BUN (Urea Nitrogen) 14 mg/dL (8.4-25.7); Bilirubin, Total 0.5 mg/dL (0.2-1.2); Calc. Creatinine Clearance 0 mL/min (70-130); Calcium 8.7 mg/dL (7.8-10.44); Carbon Dioxide 22 mmol/L (23-31); Chloride 105 mmol/L (98-107); Globulin 3.5 g/dL (2.4-3.5); Glucose 99 mg/dL (83-110); Potassium 3.4 mmol/L (3.5-5.1); Protein, Total 7.4 g/dL (5.8-8.1); Sodium 140 mmol/L (136-145)
[2020-06-23] MEDS ORDERED: Aspirin Chewable 81 MG TAB ONE (15:05)
[2020-06-23 15:11] LABS: CKMB 2.7 ng/mL (0-6.6)
[2020-06-23] MEDS ORDERED: Lisinopril 10 MG TAB ONE (16:11)
== END 2020-06-23 17:54 | disposition short-term general hospital (02) ==
LOC: MADERS 13:49
DX: R07.2 Precordial pain (principal); R06.00 Dyspnea, unspecified; I10 Essential (primary) hypertension; E78.5 Hyperlipidemia, unspecified; F17.200 Nicotine dependence, unspecified, uncomplicated; Z87.19 Personal history of other diseases of the digestive system
CPT/HCPCS: 71045; 71275; 80053; 82553; 83880; 84484; 85025; 93005; Q9967

== ENCOUNTER 2020-10-15 15:13 | Emergency (ER) | payer MEDICARE ==
[2020-10-15] MEDS ORDERED: Ketorolac Tromethamine 30 MG/ML VIAL ONE (15:58)
[2020-10-15] MEDS ORDERED: Albuterol 200 PUFF (6.7GM INHALER) ONE (15:58)
[2020-10-15] MEDS ORDERED: Acetaminophen 500 MG TAB ONE (15:58)
[2020-10-15 16:58] LABS: SARS-CoV-2 NAA Rapid Test Not Detected (NotDetected)
== END 2020-10-15 17:42 ==
LOC: MADERS 15:13
DX: M79.10 Myalgia, unspecified site (principal); B97.4 Respiratory syncytial virus as the cause of diseases classified elsewhere; Z20.822 Contact with and (suspected) exposure to COVID-19; E78.5 Hyperlipidemia, unspecified; E78.00 Pure hypercholesterolemia, unspecified; F17.210 Nicotine dependence, cigarettes, uncomplicated; I11.0 Hypertensive heart disease with heart failure; I50.9 Heart failure, unspecified; Z87.19 Personal history of other diseases of the digestive system
CPT/HCPCS: 0241U; 71045; 96372; J1885

== ENCOUNTER 2020-12-10 12:57 | Emergency (ER) | payer MEDICARE, MEDICAID ==
[2020-12-10] MEDS ORDERED: Morphine 4 MG/ML VIAL ONE (13:31)
[2020-12-10] MEDS ORDERED: Sodium Chloride 0.9% 1,000 ML ONE (13:31)
[2020-12-10 13:49] LABS: #Basophils 0.1 thou/uL (0.0-0.2); #Lymphocytes 1.7 thou/uL (1.20-3.40); #Monocytes 0.7 thou/uL (0.11-0.59); #Neutrophils 5.5 thou/uL (1.40-6.50); %Basophils 1.3 % (0.0-1.0); %Eosinophils 0.6 % (0.0-10.0); %Lymphocytes 21.5 % (21.0-51.0); %Monocytes 8.7 % (0.0-10.0); %Neutrophils 67.9 % (42.0-75.0); Hemoglobin 17.1 g/dL (14.0-18.0); Mean Corpuscular HGB CONC 30.7 g/dL (32.0-36.0); Mean Corpuscular Hemoglobin 26.6 pg (27.0-31.0); Mean Corpuscular Volume 86.7 fL (78.0-98.0); Mean Platelet Volume 7.7 fL (7.4-10.4); Platelet Count 175 thou/uL (130-400); RBC Distribution Width 12.8 % (11.5-14.5); Red Blood Cell (RBC) Count 6.44 mill/uL (4.70-6.10)
[2020-12-10 13:50] LABS: Bilirubin Small (Negative); Blood, Urine Large (Negative); Glucose, Urine (Dipstick) Negative (Negative); Ketone, Urine Trace mg/dL (Negative); Leukocyte Negative (Negative); Nitrite Negative (Negative); Protein, Urine (Dipstick) 100 mg/dL (Neg-Trace); pH, Urine 5.5 (5.0-9.0)
[2020-12-10 13:52] LABS: Clarity Hazy (Clear); Specific Gravity, Urine 1.025 (1.002-1.036)
[2020-12-10 13:53] LABS: Bacteria/HPF Rare-Few HPF (None Seen); RBC/HPF Greater than 50 HPF (0-3); WBC/HPF 0-3 HPF (0-3)
[2020-12-10 14:14] LABS: ALT (SGPT) 17 U/L (8-55); AST (SGOT) 26 U/L (5-34); Albumin 3.7 g/dL (3.4-4.8); Alkaline Phosphatase 57 U/L (40-110); Anion Gap 15 mmol/L (10-20); BUN (Urea Nitrogen) 9 mg/dL (8.4-25.7); Bilirubin, Total 0.8 mg/dL (0.2-1.2); Calc. Creatinine Clearance 0 mL/min (70-130); Calcium 9.9 mg/dL (7.8-10.44); Carbon Dioxide 22 mmol/L (23-31); Chloride 105 mmol/L (98-107); Globulin 3.7 g/dL (2.4-3.5); Glucose 98 mg/dL (83-110); Lipase 18 U/L (8-78); Potassium 3.7 mmol/L (3.5-5.1); Protein, Total 7.4 g/dL (5.8-8.1); Sodium 138 mmol/L (136-145)
[2020-12-10] MEDS ORDERED: Ketorolac Tromethamine 30 MG/ML VIAL ONE (14:22)
== END 2020-12-10 14:50 | disposition home or self-care (01) ==
LOC: MADERS 12:57
DX: N20.1 Calculus of ureter (principal); N23 Unspecified renal colic; E78.5 Hyperlipidemia, unspecified; E78.00 Pure hypercholesterolemia, unspecified; I11.0 Hypertensive heart disease with heart failure; I50.9 Heart failure, unspecified; F17.210 Nicotine dependence, cigarettes, uncomplicated
CPT/HCPCS: 36415; 74176; 80053; 81003; 81015; 83605; 83690; 84484; 85025; 96374; 96375; J1885; J2270; J7050

== ENCOUNTER 2020-12-12 14:37 | Emergency (ER) | payer MEDICARE, MEDICAID ==
[~2020-12-12 14:37] MED LIST changes: -Iopamidol 370 76% 125 ML VIAL FS ONE; +Sodium Chloride 0.9% 1,000 ML BAG ONE
[2020-12-12] MEDS ORDERED: Morphine 4 MG/ML VIAL ONE (15:14)
[2020-12-12] MEDS ORDERED: Ondansetron PF 4 MG/2 ML Vial ONE (15:14)
[2020-12-12 15:33] LABS: Band 1 % (5-11); Eosinophils 1 % (0-10); Hemoglobin 15.5 g/dL (14.0-18.0); Lymphocytes 28 % (21-51); MDiff Complete? YES; Mean Corpuscular HGB CONC 30.9 g/dL (32.0-36.0); Mean Corpuscular Hemoglobin 26.6 pg (27.0-31.0); Mean Corpuscular Volume 86.1 fL (78.0-98.0); Mean Platelet Volume 8.7 fL (7.4-10.4); Monocytes 5 % (0-10); Neutrophil 65 % (42-75); Platelet Count 177 thou/uL (130-400); RBC Distribution Width 12.7 % (11.5-14.5); Red Blood Cell (RBC) Count 5.84 mill/uL (4.70-6.10); White Blood Cell (WBC) Count 7.7 thou/uL (4.8-10.8)
[2020-12-12 15:46] LABS: ALT (SGPT) 16 U/L (8-55); AST (SGOT) 21 U/L (5-34); Albumin 3.7 g/dL (3.4-4.8); Alkaline Phosphatase 54 U/L (40-110); Anion Gap 13 mmol/L (10-20); BUN (Urea Nitrogen) 12 mg/dL (8.4-25.7); Bilirubin, Total 0.8 mg/dL (0.2-1.2); Calc. Creatinine Clearance 0 mL/min (70-130); Calcium 9.4 mg/dL (7.8-10.44); Carbon Dioxide 25 mmol/L (23-31); Chloride 101 mmol/L (98-107); Globulin 3.6 g/dL (2.4-3.5); Glucose 118 mg/dL (83-110); Potassium 3.3 mmol/L (3.5-5.1); Protein, Total 7.3 g/dL (5.8-8.1); Sodium 136 mmol/L (136-145)
[2020-12-12 16:13] LABS: Bilirubin Negative (Negative); Blood, Urine Moderate (Negative); Clarity Clear (Clear); Glucose, Urine (Dipstick) Negative (Negative); Ketone, Urine Negative (Negative); Leukocyte Negative (Negative); Nitrite Negative (Negative); Protein, Urine (Dipstick) Trace mg/dL (Neg-Trace); pH, Urine 5.5 (5.0-9.0)
[2020-12-12 16:20] LABS: Bacteria/HPF None Seen HPF (None Seen); Squamous Epithelial 0-3 HPF (0-3); WBC/HPF 0-3 HPF (0-3)
[2020-12-12] MEDS ORDERED: Ketorolac Tromethamine 30 MG/ML VIAL ONE (18:22)
[2020-12-12 18:40] LABS: SARS-CoV-2 NAA Rapid Test Not Detected (NotDetected)
== END 2020-12-13 00:15 | disposition short-term general hospital (02) ==
LOC: MADERS 14:37
DX: N13.2 Hydronephrosis with renal and ureteral calculous obstruction (principal); N17.9 Acute kidney failure, unspecified; I11.0 Hypertensive heart disease with heart failure; I50.9 Heart failure, unspecified; E78.5 Hyperlipidemia, unspecified; E78.00 Pure hypercholesterolemia, unspecified; Z20.822 Contact with and (suspected) exposure to COVID-19; F17.210 Nicotine dependence, cigarettes, uncomplicated; Z79.899 Other long term (current) drug therapy
CPT/HCPCS: 36415; 74176; 80053; 81003; 81015; 85025; 96374; 96375; J1885; J2270; J2405; J7050; U0002

== ENCOUNTER 2021-03-04 18:37 | Emergency (ER) | payer MEDICARE, MEDICAID ==
[2021-03-04 19:33] LABS: #Basophils 0.1 thou/uL (0.0-0.2); #Eosinphils 0.2 thou/uL (0.0-0.7); #Monocytes 0.7 thou/uL (0.11-0.59); %Basophils 1.2 % (0.0-1.0); %Lymphocytes 38.1 % (21.0-51.0); %Monocytes 8.5 % (0.0-10.0); %Neutrophils 50.3 % (42.0-75.0); Hemoglobin 15.2 g/dL (14.0-18.0); Mean Corpuscular HGB CONC 30.4 g/dL (32.0-36.0); Mean Corpuscular Hemoglobin 26.5 pg (27.0-31.0); Mean Corpuscular Volume 87.2 fL (78.0-98.0); Mean Platelet Volume 6.9 fL (7.4-10.4); Platelet Count 172 thou/uL (130-400); RBC Distribution Width 13.4 % (11.5-14.5); Red Blood Cell (RBC) Count 5.76 mill/uL (4.70-6.10); White Blood Cell (WBC) Count 7.9 thou/uL (4.8-10.8)
[2021-03-04 19:50] LABS: ALT (SGPT) 25 U/L (8-55); AST (SGOT) 28 U/L (5-34); Albumin 4.2 g/dL (3.4-4.8); Alkaline Phosphatase 71 U/L (40-110); Anion Gap 15 mmol/L (10-20); BUN (Urea Nitrogen) 45 mg/dL (8.4-25.7); Bilirubin, Total 0.4 mg/dL (0.2-1.2); Calc. Creatinine Clearance 0 mL/min (70-130); Carbon Dioxide 26 mmol/L (23-31); Chloride 101 mmol/L (98-107); Globulin 3.8 g/dL (2.4-3.5); Glucose 102 mg/dL (83-110); Potassium 4.1 mmol/L (3.5-5.1); Sodium 138 mmol/L (136-145)
[2021-03-04 20:42] LABS: CK (CPK) 240 U/L (30-200); CRP (Inflammatory) Less than 0.50 mg/dL (= or < 0.5)
[2021-03-04] MEDS ORDERED: Dextrose 5% in Water 500 ML ONE (21:08)
[2021-03-04] MEDS ORDERED: Sodium Chloride 0.9% 100 ML ONE (21:08)
[2021-03-04] MEDS ORDERED: cefTRIAXone\\ROCEPHIN 2 GM VIAL ONE (21:09)
[2021-03-04 21:14] LABS: Bilirubin Small (Negative); Blood, Urine Large (Negative); Clarity Cloudy (Clear); Glucose, Urine (Dipstick) Negative (Negative); Ketone, Urine Trace mg/dL (Negative); Leukocyte Small (Negative); Nitrite Negative (Negative); Protein, Urine (Dipstick) 100 mg/dL (Neg-Trace); Urobilinogen 0.2 mg/dL (Less than 2)
[2021-03-04 21:15] LABS: Specific Gravity, Urine 1.023 (1.002-1.036)
[2021-03-04 21:26] LABS: Bacteria/HPF Rare-Few HPF (None Seen); RBC/HPF Greater than 50 HPF (0-3); Squamous Epithelial 0-3 HPF (0-3); WBC/HPF Greater Than 50 HPF (0-3)
[2021-03-04 22:19] LABS: SARS-CoV-2 NAA Rapid Test Not Detected (NotDetected)
== END 2021-03-04 22:14 | disposition short-term general hospital (02) ==
LOC: MADERS 18:37
DX: A41.9 Sepsis, unspecified organism (principal); I95.9 Hypotension, unspecified; N10 Acute pyelonephritis; N17.9 Acute kidney failure, unspecified; Z20.822 Contact with and (suspected) exposure to COVID-19; I11.0 Hypertensive heart disease with heart failure; I50.9 Heart failure, unspecified; F17.210 Nicotine dependence, cigarettes, uncomplicated; Z79.899 Other long term (current) drug therapy
CPT/HCPCS: 71045; 80053; 82550; 83605; 84484; 85025; 86140; 87040; 87086; U0002; 36415; 81003; 81015; 96365; 96375; J0696; J3370; J3490; J7070

== ENCOUNTER 2021-03-27 22:53 | Emergency (ER) | payer MEDICARE, MEDICAID ==
[2021-03-27 23:20] LABS: #Basophils 0.1 thou/uL (0.0-0.2); #Lymphocytes 1.5 thou/uL (1.20-3.40); #Monocytes 0.5 thou/uL (0.11-0.59); #Neutrophils 8.5 thou/uL (1.40-6.50); %Basophils 0.9 % (0.0-1.0); %Eosinophils 0.2 % (0.0-10.0); %Lymphocytes 14.2 % (21.0-51.0); %Monocytes 5.1 % (0.0-10.0); %Neutrophils 79.7 % (42.0-75.0); Hemoglobin 15.3 g/dL (14.0-18.0); Mean Corpuscular HGB CONC 31.9 g/dL (32.0-36.0); Mean Corpuscular Hemoglobin 26.8 pg (27.0-31.0); Mean Corpuscular Volume 83.9 fL (78.0-98.0); Mean Platelet Volume 6.8 fL (7.4-10.4); Platelet Count 168 thou/uL (130-400); RBC Distribution Width 12.2 % (11.5-14.5); Red Blood Cell (RBC) Count 5.72 mill/uL (4.70-6.10); White Blood Cell (WBC) Count 10.6 thou/uL (4.8-10.8)
[2021-03-27 23:41] LABS: ALT (SGPT) 27 U/L (8-55); AST (SGOT) 31 U/L (5-34); Albumin 4.2 g/dL (3.4-4.8); Anion Gap 18 mmol/L (10-20); BUN (Urea Nitrogen) 40 mg/dL (8.4-25.7); Calc. Creatinine Clearance 0 mL/min (70-130); Calcium 10.2 mg/dL (7.8-10.44); Carbon Dioxide 28 mmol/L (23-31); Chloride 96 mmol/L (98-107); Globulin 3.6 g/dL (2.4-3.5); Glucose 102 mg/dL (83-110); Potassium 4.4 mmol/L (3.5-5.1); Protein, Total 7.8 g/dL (5.8-8.1); Sodium 138 mmol/L (136-145)
[2021-03-27] MEDS ORDERED: Sodium Chloride 0.9% 1,000 ML ONE (23:48)
[2021-03-27] MEDS ORDERED: Pantoprazole 40 MG VIAL ONE (23:48)
[2021-03-27] MEDS ORDERED: Ondansetron PF 4 MG/2 ML Vial ONE (23:48)
[2021-03-28 00:08] LABS: Alkaline Phosphatase 57 U/L (40-110)
[2021-03-28 00:46] LABS: Bilirubin Negative (Negative); Blood, Urine Large (Negative); Clarity Cloudy (Clear); Glucose, Urine (Dipstick) Negative (Negative); Ketone, Urine Negative (Negative); Leukocyte Small (Negative); Nitrite Negative (Negative); Protein, Urine (Dipstick) 100 mg/dL (Neg-Trace); Specific Gravity, Urine 1.025 (1.005-1.030)
[2021-03-28 00:57] LABS: Bacteria/HPF Rare-Few HPF (None Seen); RBC/HPF Greater than 50 HPF (0-3); Transitional Epithelial 0-3 HPF (None Seen); WBC/HPF 21-50 HPF (0-3)
[2021-03-28 00:59] LABS: Amphetamine Not Detected (NotDetected); Barbiturates Screen Not Detected (NotDetected); Benzodiazepine Screen Not Detected (NotDetected); Cocaine Metabolite Screen Detected (NotDetected); Medtox Control Line Valid? VALID (VALID); Methadone Not Detected (NotDetected); Methamphetamine Not Detected (NotDetected); Opiate Screen Not Detected (NotDetected); Oxycodone Screen Not Detected (NotDetected); Phencyclidine (PCP) Not Detected (NotDetected); THC/Cannabinoid Screen Not Detected (NotDetected); Tricyclic Screen Not Detected (NotDetected)
[2021-03-28] MEDS ORDERED: cefTRIAXone\\ROCEPHIN 1 GM VIAL ONE (01:10)
[2021-03-28] MEDS ORDERED: Ciprofloxacin 500 MG TAB ONE (01:10)
== END 2021-03-28 02:00 | disposition home or self-care (01) ==
LOC: MADERS 22:53
DX: N39.0 Urinary tract infection, site not specified (principal); K27.9 Peptic ulcer, site unspecified, unspecified as acute or chronic, without hemorrhage or perforation; I11.0 Hypertensive heart disease with heart failure; I50.9 Heart failure, unspecified; F17.210 Nicotine dependence, cigarettes, uncomplicated
CPT/HCPCS: 80053; 80306; 81003; 81015; 85025; 87086; 96374; 96375; C9113; J0696; J2405; J7050

== ENCOUNTER 2021-04-08 10:35 | Outpatient (CLI) | payer MEDICARE, MEDICAID ==
[2021-04-08 11:22] LABS: ALT (SGPT) 21 U/L (8-55); AST (SGOT) 21 U/L (5-34); Albumin 3.5 g/dL (3.4-4.8); Alkaline Phosphatase 75 U/L (40-110); Anion Gap 13 mmol/L (10-20); BUN (Urea Nitrogen) 16 mg/dL (8.4-25.7); Bilirubin, Total 0.3 mg/dL (0.2-1.2); Calc. Creatinine Clearance 0 mL/min (70-130); Calcium 8.7 mg/dL (7.8-10.44); Carbon Dioxide 24 mmol/L (23-31); Chloride 107 mmol/L (98-107); Globulin 3.2 g/dL (2.4-3.5); Glucose 69 mg/dL (83-110); Potassium 3.6 mmol/L (3.5-5.1); Protein, Total 6.7 g/dL (5.8-8.1); Sodium 140 mmol/L (136-145)
[2021-04-08 11:39] LABS: #Basophils 0.1 thou/uL (0.0-0.2); #Eosinphils 0.2 thou/uL (0.0-0.7); #Lymphocytes 2.4 thou/uL (1.20-3.40); #Monocytes 0.7 thou/uL (0.11-0.59); #Neutrophils 5.3 thou/uL (1.40-6.50); %Basophils 0.9 % (0.0-1.0); %Lymphocytes 27.5 % (21.0-51.0); %Monocytes 8.5 % (0.0-10.0); %Neutrophils 61.2 % (42.0-75.0); Hemoglobin 11.8 g/dL (14.0-18.0); Mean Corpuscular HGB CONC 31.2 g/dL (32.0-36.0); Mean Corpuscular Volume 86.5 fL (78.0-98.0); Mean Platelet Volume 6.6 fL (7.4-10.4); Platelet Count 221 thou/uL (130-400); RBC Distribution Width 13.4 % (11.5-14.5); Red Blood Cell (RBC) Count 4.36 mill/uL (4.70-6.10); White Blood Cell (WBC) Count 8.7 thou/uL (4.8-10.8)
== END 2021-04-08 10:36 | disposition home or self-care (01) ==
LOC: MADLAB 10:35
PROVIDERS: ATTEND Family Medicine
DX: R04.2 Hemoptysis (principal); I10 Essential (primary) hypertension; J44.9 Chronic obstructive pulmonary disease, unspecified
CPT/HCPCS: 36415; 71046; 80053; 85025

== ENCOUNTER 2021-06-21 07:45 | Emergency (ER) | payer MEDICARE, MEDICAID ==
[2021-06-21 08:29] LABS: #Basophils 0.1 thou/uL (0.0-0.2); #Eosinphils 0.3 thou/uL (0.0-0.7); #Lymphocytes 2.9 thou/uL (1.20-3.40); #Monocytes 0.6 thou/uL (0.11-0.59); #Neutrophils 4.5 thou/uL (1.40-6.50); %Basophils 1.6 % (0.0-1.0); %Eosinophils 3.5 % (0.0-10.0); %Lymphocytes 34.8 % (21.0-51.0); %Monocytes 6.6 % (0.0-10.0); %Neutrophils 53.5 % (42.0-75.0); Mean Corpuscular HGB CONC 31.5 g/dL (32.0-36.0); Mean Corpuscular Hemoglobin 25.9 pg (27.0-31.0); Mean Corpuscular Volume 82.2 fL (78.0-98.0); Mean Platelet Volume 7.2 fL (7.4-10.4); Platelet Count 209 thou/uL (130-400); Red Blood Cell (RBC) Count 5.82 mill/uL (4.70-6.10); White Blood Cell (WBC) Count 8.3 thou/uL (4.8-10.8)
[2021-06-21 08:45] LABS: ALT (SGPT) 37 U/L (8-55); AST (SGOT) 42 U/L (5-34); Albumin 4.5 g/dL (3.4-4.8); Alkaline Phosphatase 80 U/L (40-110); Anion Gap 20 mmol/L (10-20); BUN (Urea Nitrogen) 18 mg/dL (8.4-25.7); Bilirubin, Total 0.9 mg/dL (0.2-1.2); Calc. Creatinine Clearance 0 mL/min (70-130); Calcium 10.2 mg/dL (7.8-10.44); Carbon Dioxide 19 mmol/L (23-31); Chloride 100 mmol/L (98-107); Globulin 4.4 g/dL (2.4-3.5); Glucose 79 mg/dL (83-110); Protein, Total 8.9 g/dL (5.8-8.1); Sodium 135 mmol/L (136-145)
[2021-06-21 08:50] LABS: Bilirubin Negative (Negative); Blood, Urine Large (Negative); Clarity Cloudy (Clear); Glucose, Urine (Dipstick) Negative (Negative); Ketone, Urine Negative (Negative); Leukocyte Small (Negative); Nitrite Negative (Negative); Protein, Urine (Dipstick) > or equal to 300 mg/dL (Neg-Trace)
[2021-06-21 08:53] LABS: RBC/HPF Greater than 50 HPF (0-3); Squamous Epithelial 0-3 HPF (0-3); WBC/HPF 21-50 HPF (0-3)
[2021-06-21 08:54] LABS: Bacteria/HPF 1+ HPF (None Seen)
[2021-06-21] MEDS ORDERED: Levofloxacin 500 mg/D5W 100 ml Premix Bag ONE (09:02)
[2021-06-21] MEDS ORDERED: traMADol HCl 50 MG TAB ONE (09:16)
[2021-06-21] MEDS ORDERED: Ondansetron ODT 4 MG TAB ONE (09:16)
== END 2021-06-21 09:30 | disposition home or self-care (01) ==
LOC: MADERS 07:45
DX: N12 Tubulo-interstitial nephritis, not specified as acute or chronic (principal); Z96.0 Presence of urogenital implants; K21.9 Gastro-esophageal reflux disease without esophagitis; I11.0 Hypertensive heart disease with heart failure; I50.9 Heart failure, unspecified; F17.210 Nicotine dependence, cigarettes, uncomplicated
CPT/HCPCS: 36415; 80053; 81003; 81015; 85025; 86140; 87086; 99284; J1956; Q0162

== ENCOUNTER 2021-08-18 11:35 | Outpatient (CLI) | payer MEDICARE, MEDICAID | END 2021-08-18 11:36 | disposition home or self-care (01) | LOC: MADRAD 11:35 | PROVIDERS: ATTEND Family Medicine | DX: J44.1 Chronic obstructive pulmonary disease with (acute) exacerbation (principal) | CPT/HCPCS: 71046 ==

== ENCOUNTER 2021-12-02 05:04 | Emergency (ER) | payer MEDICARE, MEDICAID ==
[2021-12-02 06:05] LABS: #Basophils 0.1 thou/uL (0.0-0.2); #Eosinphils 0.2 thou/uL (0.0-0.7); #Lymphocytes 2.5 thou/uL (1.20-3.40); #Monocytes 0.7 thou/uL (0.11-0.59); #Neutrophils 3.8 thou/uL (1.40-6.50); %Basophils 1.4 % (0.0-1.0); %Eosinophils 2.5 % (0.0-10.0); %Lymphocytes 34.4 % (21.0-51.0); %Monocytes 9.5 % (0.0-10.0); %Neutrophils 52.3 % (42.0-75.0); Hemoglobin 12.7 g/dL (14.0-18.0); Mean Corpuscular HGB CONC 30.6 g/dL (32.0-36.0); Mean Corpuscular Hemoglobin 24.4 pg (27.0-31.0); Mean Platelet Volume 9.2 fL (7.4-10.4); Platelet Count 197 thou/uL (130-400); Red Blood Cell (RBC) Count 5.19 mill/uL (4.70-6.10); White Blood Cell (WBC) Count 7.3 thou/uL (4.8-10.8)
[2021-12-02 06:08] LABS: Anisocytosis SLIGHT = 6-15 cells (100X) (0-5/hpf); Platelet Morphology Comment Appears Adequate; Poikilocytosis SLIGHT = 6-15 cells (100X) (0-5/hpf)
[2021-12-02 06:12] LABS: ALT (SGPT) 16 U/L (8-55); AST (SGOT) 24 U/L (5-34); Albumin 4.2 g/dL (3.4-4.8); Alkaline Phosphatase 56 U/L (40-110); Anion Gap 15 mmol/L (10-20); BUN (Urea Nitrogen) 20 mg/dL (8.4-25.7); Bilirubin, Total 0.9 mg/dL (0.2-1.2); Calc. Creatinine Clearance 0 mL/min (70-130); Carbon Dioxide 23 mmol/L (23-31); Chloride 105 mmol/L (98-107); Estimated GFR 41; Globulin 3.9 g/dL (2.4-3.5); Glucose 86 mg/dL (83-110); Potassium 4.7 mmol/L (3.5-5.1); Protein, Total 8.1 g/dL (5.8-8.1); Sodium 138 mmol/L (136-145)
[2021-12-02] MEDS ORDERED: Sodium Chloride 0.9% 1,000 ML BAG ONE (06:18)
[2021-12-02 06:46] LABS: INR-International Normal Ratio 1.1; Prothrombin Time 14.1 sec (12.0-14.7)
[2021-12-02 07:04] LABS: Bilirubin Small (Negative); Blood, Urine Large (Negative); Clarity Slightly Cloudy (Clear); Glucose, Urine (Dipstick) Negative (Negative); Ketone, Urine Negative (Negative); Leukocyte Small (Negative); Nitrite Negative (Negative); Protein, Urine (Dipstick) > or equal to 300 mg/dL (Neg-Trace); pH, Urine 5.5 (5.0-9.0)
[2021-12-02 07:05] LABS: RBC/HPF Greater than 50 HPF (0-3); Specific Gravity, Urine 1.022 (1.002-1.036); Squamous Epithelial 0-3 HPF (0-3)
[2021-12-02 07:06] LABS: Bacteria/HPF 1+ HPF (None Seen)
[2021-12-02] MEDS ORDERED: Sodium Chloride 0.9% 100 ML ONE (08:35)
[2021-12-02] MEDS ORDERED: cefTRIAXone\\ROCEPHIN 1 GM VIAL ONE (08:35)
== END 2021-12-02 09:53 | disposition home or self-care (01) ==
LOC: MADERS 05:04
DX: N17.9 Acute kidney failure, unspecified (principal); R31.9 Hematuria, unspecified; I11.0 Hypertensive heart disease with heart failure; I50.9 Heart failure, unspecified; F17.210 Nicotine dependence, cigarettes, uncomplicated; Z96.0 Presence of urogenital implants
CPT/HCPCS: 36415; 74176; 80053; 81003; 81015; 83605; 83690; 85025; 85610; 87086; 96361; 96365; J0696; J3490; J7050

== ENCOUNTER 2021-12-09 07:37 | Emergency (ER) | payer MEDICARE, MEDICAID ==
[2021-12-09] MEDS ORDERED: Lactated Ringer's 1,000 ML ONE (08:33)
[2021-12-09] MEDS ORDERED: Nitroglycerin 0.4 MG TAB 1 EACH ONE (08:33)
[2021-12-09] MEDS ORDERED: Aspirin Chewable 81 MG TAB ONE (08:33)
[2021-12-09 09:26] LABS: #Basophils 0.1 thou/uL (0.0-0.2); #Eosinphils 0.2 thou/uL (0.0-0.7); #Lymphocytes 2.3 thou/uL (1.20-3.40); #Monocytes 0.5 thou/uL (0.11-0.59); #Neutrophils 3.4 thou/uL (1.40-6.50); %Basophils 1.5 % (0.0-1.0); %Monocytes 8.1 % (0.0-10.0); %Neutrophils 52.3 % (42.0-75.0); Hemoglobin 12.5 g/dL (14.0-18.0); Mean Corpuscular HGB CONC 29.7 g/dL (32.0-36.0); Mean Corpuscular Hemoglobin 24.3 pg (27.0-31.0); Mean Corpuscular Volume 81.7 fL (78.0-98.0); Mean Platelet Volume 9.9 fL (7.4-10.4); Platelet Count 167 thou/uL (130-400); Red Blood Cell (RBC) Count 5.15 mill/uL (4.70-6.10); White Blood Cell (WBC) Count 6.6 thou/uL (4.8-10.8)
[2021-12-09 09:41] LABS: Anisocytosis SLIGHT = 6-15 cells (100X) (0-5/hpf); Platelet Morphology Comment Appears Adequate
[2021-12-09 10:19] LABS: ALT (SGPT) 20 U/L (8-55); AST (SGOT) 35 U/L (5-34); Albumin 3.9 g/dL (3.4-4.8); Alkaline Phosphatase 51 U/L (40-110); Anion Gap 16 mmol/L (10-20); BUN (Urea Nitrogen) 18 mg/dL (8.4-25.7); Bilirubin, Total 0.7 mg/dL (0.2-1.2); Calc. Creatinine Clearance 0 mL/min (70-130); Calcium 9.4 mg/dL (7.8-10.44); Carbon Dioxide 19 mmol/L (23-31); Chloride 108 mmol/L (98-107); Estimated GFR 53; Globulin 3.8 g/dL (2.4-3.5); Glucose 78 mg/dL (83-110); Potassium 4.7 mmol/L (3.5-5.1); Protein, Total 7.7 g/dL (5.8-8.1); Sodium 138 mmol/L (136-145)
[2021-12-09 10:26] LABS: Lipase 33 U/L (8-78)
[2021-12-09 12:14] LABS: Bilirubin Small (Negative); Blood, Urine Large (Negative); Glucose, Urine (Dipstick) Negative (Negative); Ketone, Urine Negative (Negative); Leukocyte Small (Negative); Nitrite Negative (Negative); Protein, Urine (Dipstick) 100 mg/dL (Neg-Trace); Urobilinogen 0.2 mg/dL (Less than 2); pH, Urine 5.5 (5.0-9.0)
[2021-12-09 12:18] LABS: Clarity Cloudy (Clear); Specific Gravity, Urine 1.023 (1.002-1.036)
[2021-12-09 12:26] LABS: Bacteria/HPF Rare-Few HPF (None Seen); RBC/HPF Greater than 50 HPF (0-3); WBC/HPF 21-50 HPF (0-3)
== END 2021-12-09 17:33 | disposition short-term general hospital (02) ==
LOC: MADERS 07:37
DX: R07.89 Other chest pain (principal); R31.9 Hematuria, unspecified; M89.8X7 Other specified disorders of bone, ankle and foot; E87.2 Acidosis; N17.9 Acute kidney failure, unspecified; I10 Essential (primary) hypertension; Z96.0 Presence of urogenital implants
CPT/HCPCS: 36415; 71045; 76770; 80053; 81003; 81015; 83605; 83690; 84484; 85025; 87040; 87086; 93005; 94760; J7120

== ENCOUNTER 2023-03-05 11:48 | Emergency (ER) | payer MEDICARE ==
[2023-03-05] MEDS ORDERED: Ondansetron PF 4 MG/2 ML Vial ONE (12:44)
[2023-03-05 12:47] LABS: #Basophils 0.1 thou/uL (0.0-0.2); #Eosinphils 0.1 thou/uL (0.0-0.7); #Lymphocytes 1.5 thou/uL (1.20-3.40); #Monocytes 0.5 thou/uL (0.11-0.59); #Neutrophils 3.7 thou/uL (1.40-6.50); %Basophils 1.2 % (0.0-1.0); %Eosinophils 1.2 % (0.0-10.0); %Lymphocytes 25.5 % (21.0-51.0); %Monocytes 9.1 % (0.0-10.0); Hematocrit 45.1 % (42.0-52.0); Hemoglobin 13.9 g/dL (14.0-18.0); Mean Corpuscular HGB CONC 30.9 g/dL (32.0-36.0); Mean Corpuscular Hemoglobin 25.8 pg (27.0-31.0); Mean Corpuscular Volume 83.5 fl (78.0-98.0); Mean Platelet Volume 9.9 fL (7.4-10.4); Platelet Count 161 10x3/uL (130-400); RBC Distribution Width 13.8 % (11.5-14.5); White Blood Cell (WBC) Count 5.8 10x3/uL (4.8-10.8)
[2023-03-05 13:05] LABS: ALT (SGPT) 14 U/L (8-55); AST (SGOT) 14 U/L (5-34); Albumin 3.9 g/dL (3.4-4.8); Alkaline Phosphatase 66 U/L (40-110); Anion Gap 19 mmol/L (10-20); BUN (Urea Nitrogen) 25 mg/dL (8.4-25.7); Bilirubin, Total 0.5 mg/dL (0.2-1.2); Calc. Creatinine Clearance 0 mL/min (70-130); Calcium 8.9 mg/dL (7.8-10.44); Carbon Dioxide 23 mmol/L (23-31); Chloride 98 mmol/L (98-107); Estimated GFR 54; Globulin 3.8 g/dL (2.4-3.5); Glucose 124 mg/dL (83-110); Magnesium 2.3 mg/dL (1.6-2.6); Potassium 3.5 mmol/L (3.5-5.1); Protein, Total 7.7 g/dL (5.8-8.1); Sodium 136 mmol/L (136-145)
[2023-03-05 13:18] LABS: Troponin I 0.011 ng/mL (< 0.028)
[2023-03-05 13:28] LABS: Bilirubin Negative (Negative); Blood, Urine Trace (Negative); Glucose, Urine (Dipstick) Negative (Negative); Ketone, Urine Trace mg/dL (Negative); Leukocyte Moderate (Negative); Nitrite Positive (Negative); Protein, Urine (Dipstick) 30 mg/dL (Neg-Trace)
[2023-03-05 13:29] LABS: Clarity Cloudy (Clear)
[2023-03-05 13:36] LABS: CAUTI Indications for Culture Dysuria,urgency,freq; RBC/HPF 0-3 HPF (0-3); WBC/HPF Greater Than 50 HPF (0-3)
[2023-03-05 13:37] LABS: Bacteria/HPF 3+ HPF (None Seen); Trichomonas/HPF 1+ HPF (None Seen)
[2023-03-05 13:38] LABS: Urine Culture Reflex Yes Yes
[2023-03-05] MEDS ORDERED: metroNIDAZOLE 250 MG TAB ONE (13:50)
[2023-03-05] MEDS ORDERED: cefTRIAXone (ROCEPHIN) 1 GM VIAL ONE (13:51)
[2023-03-05] MEDS ORDERED: Sodium Chloride 0.9% 100 ML ONE (13:52)
== END 2023-03-05 14:38 | disposition home or self-care (01) ==
LOC: MADERS 11:48
DX: N39.0 Urinary tract infection, site not specified (principal); J44.9 Chronic obstructive pulmonary disease, unspecified; A59.00 Urogenital trichomoniasis, unspecified; R11.2 Nausea with vomiting, unspecified; I11.0 Hypertensive heart disease with heart failure; I50.9 Heart failure, unspecified; K21.9 Gastro-esophageal reflux disease without esophagitis; F17.210 Nicotine dependence, cigarettes, uncomplicated; Z79.82 Long term (current) use of aspirin; Z79.899 Other long term (current) drug therapy
CPT/HCPCS: 71045; 80053; 81001; 83735; 84484; 85025; 87077; 87086; 87186; 93005; 94760; 96365; 96375; J0696; J2405; J3490

== ENCOUNTER 2023-11-29 13:11 | Emergency (ER) | payer MEDICARE, OTHER ==
[2023-11-29 14:21] LABS: Hematocrit 41.1 % (42.0-52.0); Hemoglobin 12.4 g/dL (14.0-18.0); Mean Corpuscular HGB CONC 30.2 g/dL (32.0-36.0); Mean Corpuscular Hemoglobin 24.8 pg (27.0-31.0); Mean Corpuscular Volume 82.1 fl (78.0-98.0); Mean Platelet Volume 7.8 fL (7.4-10.4); Platelet Count 175 10x3/uL (130-400); RBC Distribution Width 15.2 % (11.5-14.5); Red Blood Cell (RBC) Count 5.01 mill/uL (4.70-6.10); White Blood Cell (WBC) Count 6.6 10x3/uL (4.8-10.8)
[2023-11-29 14:28] LABS: Band 2 % (5-11); Eosinophils 3 % (0-10); Lymphocytes 31 % (21-51); MDiff Complete? YES; Manual Diff?? YES; Monocytes 7 % (0-10); Neutrophil 58 % (42-75)
[2023-11-29 14:29] LABS: Platelet Adequacy Comment Appears Adequate; RBC Morph Comment Within Normal Limits
[2023-11-29 14:31] LABS: ALT (SGPT) 8 U/L (8-55); AST (SGOT) 13 U/L (5-34); Albumin 3.3 g/dL (3.4-4.8); Alkaline Phosphatase 68 U/L (40-110); Anion Gap 16 mmol/L (10-20); BUN (Urea Nitrogen) 10 mg/dL (8.4-25.7); Bilirubin, Total 0.4 mg/dL (0.2-1.2); Calc. Creatinine Clearance 0 mL/min (70-130); Calcium 8.9 mg/dL (7.8-10.44); Carbon Dioxide 22 mmol/L (23-31); Chloride 104 mmol/L (98-107); Estimated GFR 68; Globulin 3.2 g/dL (2.4-3.5); Glucose 145 mg/dL (83-110); Potassium 3.2 mmol/L (3.5-5.1); Protein, Total 6.5 g/dL (5.8-8.1); Sodium 139 mmol/L (136-145)
[2023-11-29 14:37] LABS: Troponin I 0.026 ng/mL (< 0.028)
[2023-11-29] MEDS ORDERED: predniSONE 20 MG TAB ONE (15:16)
[2023-11-29] MEDS ORDERED: Ipratropium/Albuterol 3 ML NEB ONE (15:16)
== END 2023-11-29 15:38 | disposition home or self-care (01) ==
LOC: MADERS 13:11
DX: J44.1 Chronic obstructive pulmonary disease with (acute) exacerbation (principal); I11.0 Hypertensive heart disease with heart failure; I50.9 Heart failure, unspecified; F17.210 Nicotine dependence, cigarettes, uncomplicated
CPT/HCPCS: 71046; 80053; 83880; 84484; 85025; 93005; J7512; J7620

== ENCOUNTER 2024-03-16 00:13 | Emergency (ER) | payer MEDICARE, OTHER ==
[2024-03-16 01:03] LABS: #Basophils 0.1 thou/uL (0.0-0.2); #Eosinophils 0.1 thou/uL (0.0-0.7); #Lymphocytes 2.7 thou/uL (1.20-3.40); #Monocytes 0.5 thou/uL (0.11-0.59); %Basophils 1.4 % (0.0-1.0); %Eosinophils 1.6 % (0.0-10.0); %Lymphocytes 36.3 % (21.0-51.0); %Neutrophils 53.7 % (42.0-75.0); Hematocrit 41.8 % (42.0-52.0); Hemoglobin 13.2 g/dL (14.0-18.0); Mean Corpuscular HGB CONC 31.6 g/dL (32.0-36.0); Mean Corpuscular Hemoglobin 25.7 pg (27.0-31.0); Mean Corpuscular Volume 81.2 fl (78.0-98.0); Mean Platelet Volume 7.6 fL (7.4-10.4); Platelet Count 220 10x3/uL (130-400); RBC Distribution Width 14.5 % (11.5-14.5); Red Blood Cell (RBC) Count 5.15 mill/uL (4.70-6.10); White Blood Cell (WBC) Count 7.5 10x3/uL (4.8-10.8)
[2024-03-16 01:22] LABS: ALT (SGPT) 8 U/L (8-55); AST (SGOT) 15 U/L (5-34); Albumin 3.4 g/dL (3.4-4.8); Alkaline Phosphatase 70 U/L (40-110); Anion Gap 13 mmol/L (10-20); BUN (Urea Nitrogen) 13 mg/dL (8.4-25.7); Bilirubin, Total 0.3 mg/dL (0.2-1.2); Calc. Creatinine Clearance 0 mL/min (70-130); Calcium 8.9 mg/dL (7.8-10.44); Carbon Dioxide 24 mmol/L (23-31); Chloride 105 mmol/L (98-107); Estimated GFR 61; Globulin 3.7 g/dL (2.4-3.5); Glucose 97 mg/dL (83-110); Protein, Total 7.1 g/dL (5.8-8.1); Sodium 138 mmol/L (136-145); Troponin I Less than 0.010 ng/mL (< 0.028)
[2024-03-16] MEDS ORDERED: Atropine Sulfate 1 mg/10 ml Syringe ONE (01:28)
[2024-03-16] MEDS ORDERED: Aspirin Chewable 81 MG TAB ONE (01:29)
[2024-03-16] MEDS ORDERED: Nitroglycerin 0.4 MG TAB 1 EACH ONE (01:45)
[2024-03-16] MEDS ORDERED: methylPREDNISolone Sod Succ/PF 125 MG/2 ML VIAL ONE (02:27)
[2024-03-16] MEDS ORDERED: Ipratropium/Albuterol 3 ML NEB ONE (02:27)
[2024-03-16] MEDS ORDERED: Acetaminophen 500 MG TAB ONE (02:27)
[2024-03-16] MEDS ORDERED: Amlodipine 5 MG TAB ONE (03:57)
[2024-03-16 04:16] LABS: Troponin I Less than 0.010 ng/mL (< 0.028)
== END 2024-03-16 04:20 | disposition short-term general hospital (02) ==
LOC: MADERS 00:13
DX: R07.9 Chest pain, unspecified (principal); R00.1 Bradycardia, unspecified; F17.210 Nicotine dependence, cigarettes, uncomplicated; I11.0 Hypertensive heart disease with heart failure; I50.9 Heart failure, unspecified; J44.9 Chronic obstructive pulmonary disease, unspecified
CPT/HCPCS: 71045; 80053; 83880; 84484; 85025; 87400; 87426; 93005; 94760; 96374; 96375; J0461; J2919; J7620

== ENCOUNTER 2024-10-29 19:36 | Emergency (ER) | payer MEDICARE, OTHER ==
[2024-10-29 20:31] LABS: Hematocrit 44.6 % (42.0-52.0); Hemoglobin 13.8 g/dL (14.0-18.0); MDiff Complete? YES; Mean Corpuscular Hemoglobin 26.2 pg (27.0-31.0); Mean Corpuscular Volume 84.7 fl (78.0-98.0); Platelet Count 205 10x3/uL (130-400); Red Blood Cell (RBC) Count 5.26 mill/uL (4.70-6.10); White Blood Cell (WBC) Count 7.7 10x3/uL (4.8-10.8)
[2024-10-29 20:41] LABS: INR-International Normal Ratio 1.3; Prothrombin Time 15.9 sec (12.0-14.7)
[2024-10-29 20:42] LABS: PTT 32.0 sec (22.9-36.1)
[2024-10-29 20:52] LABS: ALT (SGPT) 13 U/L (Less than 45); AST (SGOT) 22 U/L (11-34); Albumin 4.0 g/dL (3.1-4.5); Alkaline Phosphatase 66 U/L (40-110); Anion Gap 17 mmol/L (10-20); BUN (Urea Nitrogen) 18 mg/dL (8.4-25.7); Bilirubin, Total 1.0 mg/dL (0.3-1.2); Calc. Creatinine Clearance 0 mL/min (70-130); Calcium 9.1 mg/dL (7.8-10.44); Carbon Dioxide 15 mmol/L (23-31); Chloride 112 mmol/L (98-107); Globulin 3.3 g/dL (2.4-3.5); Glucose 126 mg/dL (83-110); Magnesium 1.7 mg/dL (1.6-2.6); Potassium 4.3 mmol/L (3.5-5.1); Sodium 140 mmol/L (136-145); Troponin I 0.172 ng/mL (< 0.028)
[2024-10-29] MEDS ORDERED: Aspirin Chewable 81 MG TAB ONE (21:02)
[2024-10-29] MEDS ORDERED: Furosemide 40 MG (4 mL) VIAL ONE (21:03)
[2024-10-29 22:40] LABS: Glucose, Urine (Dipstick) Negative (Negative); Leukocyte Negative (Negative); Protein, Urine (Dipstick) 30 mg/dL (Neg-Trace); Specific Gravity, Urine 1.025 (1.005-1.030)
[2024-10-29 22:44] LABS: Bacteria/HPF Rare-Few HPF (None Seen); CAUTI Indications for Culture Alt mental st,lethar; RBC/HPF None Seen HPF (0-3); WBC/HPF 0-3 HPF (0-3)
[2024-10-29 22:45] LABS: Urine Culture Reflex No No
[2024-10-29 22:48] LABS: Cocaine Metabolite Screen PRELIM POSITIVE (Negative); THC/Cannabinoid Screen Negative (Negative); Tricyclic Screen Negative (Negative)
[2024-10-29 22:53] LABS: Bicarbonate (HCO3v) 19.8 mmol/L (22.0-28.0); CO2 Tension (PvCO2) 32.4 mmHg (42.0-51.0); Calcium, Ionized 1.11 mmol/L (1.15-1.33); Chloride 112 mmol/L (98-107); Hemoglobin - Calc 14.1 g/dL (14.0-18.0); Potassium 3.8 mmol/L (3.5-5.1); Sodium 139 mmol/L (138-145); T. Carbon Dioxide 20.8 mmol/L (22.0-28.0); vO2 Saturation-calc 99.7 % (60.0-85.0)
== END 2024-10-29 23:21 | disposition short-term general hospital (02) ==
LOC: MADERS 19:36
DX: I11.0 Hypertensive heart disease with heart failure (principal); I50.9 Heart failure, unspecified; Z91.199 Patient's noncompliance with other medical treatment and regimen due to unspecified reason; J44.9 Chronic obstructive pulmonary disease, unspecified; F17.210 Nicotine dependence, cigarettes, uncomplicated; Z95.5 Presence of coronary angioplasty implant and graft
CPT/HCPCS: 71045; 80053; 80306; 81001; 82330; 82803; 83605; 83735; 83880; 84443; 84484; 85025; 85610; 85730; 93005; 96365; 96375; J1940

== ENCOUNTER 2024-12-10 22:06 | Emergency (ER) | payer OTHER ==
[2024-12-10] MEDS ORDERED: Nitroglycerin 0.4 MG TAB 1 EACH ONE (22:37)
[2024-12-10] MEDS ORDERED: Aspirin 325 MG TAB ONE (22:38)
[2024-12-10 22:41] LABS: #Basophils 0.1 thou/uL (0.0-0.2); #Eosinophils 0.1 thou/uL (0.0-0.7); #Lymphocytes 1.7 thou/uL (1.20-3.40); #Monocytes 0.8 thou/uL (0.11-0.59); #Neutrophils 4.6 thou/uL (1.40-6.50); %Basophils 1.2 % (0.0-1.0); %Eosinophils 1.0 % (0.0-10.0); %Lymphocytes 23.1 % (21.0-51.0); %Monocytes 10.7 % (0.0-10.0); %Neutrophils 64.0 % (42.0-75.0)
[2024-12-10 22:52] LABS: Burr Cells SLIGHT = 2-5 cells (100X) (0-1/hpf); Hematocrit 38.6 % (42.0-52.0); Hemoglobin 12.5 g/dL (14.0-18.0); MDiff Complete? YES; Mean Corpuscular Hemoglobin 26.6 pg (27.0-31.0); Mean Corpuscular Volume 82.2 fl (78.0-98.0); Platelet Adequacy Comment Appears Decreased; Platelet Count 115 10x3/uL (130-400); Red Blood Cell (RBC) Count 4.70 mill/uL (4.70-6.10); White Blood Cell (WBC) Count 7.2 10x3/uL (4.8-10.8)
[2024-12-10 22:56] LABS: ALT (SGPT) 14 U/L (Less than 45); AST (SGOT) 20 U/L (11-34); Albumin 3.8 g/dL (3.1-4.5); Alkaline Phosphatase 79 U/L (40-110); Anion Gap 19 mmol/L (10-20); BUN (Urea Nitrogen) 19 mg/dL (8.4-25.7); Bilirubin, Total 0.4 mg/dL (0.3-1.2); Calc. Creatinine Clearance 0 mL/min (70-130); Calcium 9.1 mg/dL (7.8-10.44); Carbon Dioxide 21 mmol/L (23-31); Chloride 104 mmol/L (98-107); Globulin 3.2 g/dL (2.4-3.5); Glucose 117 mg/dL (83-110); Potassium 3.9 mmol/L (3.5-5.1); Sodium 140 mmol/L (136-145)
[2024-12-10 22:57] LABS: Troponin I 0.040 ng/mL (< 0.028)
[2024-12-10 22:58] LABS: Cocaine Metabolite Screen PRELIM POSITIVE (Negative); THC/Cannabinoid Screen Negative (Negative); Tricyclic Screen Negative (Negative)
[2024-12-11] MEDS ORDERED: Enoxaparin 80 MG (0.8 mL) SYRINGE ONE (00:42)
[2024-12-11 01:28] LABS: Troponin I 0.025 ng/mL (< 0.028)
== END 2024-12-11 01:18 | disposition short-term general hospital (02) ==
LOC: MADERS 22:06 → EEVIPCON 22:06 → MADERS 12-11 01:18
DX: I21.4 Non-ST elevation (NSTEMI) myocardial infarction (principal); F14.10 Cocaine abuse, uncomplicated; I11.0 Hypertensive heart disease with heart failure; I50.9 Heart failure, unspecified; K21.9 Gastro-esophageal reflux disease without esophagitis; J44.9 Chronic obstructive pulmonary disease, unspecified; I25.10 Atherosclerotic heart disease of native coronary artery without angina pectoris; Z79.51 Long term (current) use of inhaled steroids; Z79.899 Other long term (current) drug therapy; Z95.9 Presence of cardiac and vascular implant and graft, unspecified; Z87.891 Personal history of nicotine dependence
CPT/HCPCS: 71045; 80053; 80306; 83880; 84484; 85025; 93005; 96372; J1650